=== PATIENT | female | born 1985 | race Caucasian/White ===

== ENCOUNTER 2025-02-09 18:52 | Emergency (ER) | payer MEDICAID, SELFPAY ==
--- NOTE | 2025-02-09 19:07 | PD.EDCHEST ---
ED Chest Pain RME/HPI General Chief Complaint: Chest Pain Stated Complaint: BACK PAIN Time Seen by Provider: 02/09/25 19:05 Arrival date/time: 02/09/25 18:52 RME / HPI RME / HPI narrative: See [facility] for Dr. Lopez's HPI Documentation. Related Data Home Medications ?Medication ?Instructions ?Recorded ?Confirmed methadone 10 mg/mL oral concentrate 100 mg PO DAILY 09/22/17 09/22/17 Previous Rx's ?Medication ?Instructions ?Recorded propranolol 10 mg tablet 10 mg PO DAILY #30 tabs 09/23/18 lidocaine 5 % topical cream 1 applicatio topical BID PRN pain 11/01/18 #45 grams ferrous sulfate 325 mg (65 mg 325 mg PO BID #120 tabs 10/17/20 iron) tablet cephalexin 500 mg capsule 500 mg PO QID #28 caps 09/28/21 cephalexin 500 mg capsule 500 mg PO QID #28 caps 05/27/23 acetaminophen 300 mg-codeine 30 mg 2 tab PO Q8H PRN pain #20 tabs 02/09/25 tablet Allergies Allergy/AdvReac Type Severity Reaction Status Date / Time No Known Allergies Allergy Verified 05/27/23 08:52 Review of Systems Review of Systems Systems Reviewed: All systems reviewed, normal except as documented Past Medical History Past Medical History GASTROINTESTINAL: Positive Gall Bladder Disease PSYCHO/SOCIAL: Positive Anxiety Surgical History SURGICAL: Positive Section ED Exam Narrative Physical exam: See [facility] for Dr. Lopez's Physical Exam Documentation. Course Quality Measures none Orders Category Date Time Status CT Screening NOW Care 02/09/25 19:09 Completed EKG (ED ONLY) *Do not use* NOW Care 02/09/25 19:08 Completed Saline [Insert IV] NOW Care 02/09/25 19:[address] angio chest Stat Exams 02/09/25 19:[address] cervical spine wo con Stat Exams 02/09/25 19:[address] head/brain wo con Stat Exams 02/09/25 19:[address] lumbar spine wo con Stat Exams 02/09/25 19:[address] thoracic spine wo con Stat Exams 02/09/25 19:10 Completed EKG (ED Only) Stat Exams 02/09/25 19:08 Draft XR chest 1V portable Stat Exams 02/09/25 19:08 Completed BNP [B-Type Natriuretic Peptide] Stat Lab 02/09/25 19:20 Completed Bilirubin,Direct Stat Lab 02/09/25 19:20 Completed CBC Stat Lab 02/09/25 19:20 Completed CMP [Comprehensive Metabolic Panel] Stat Lab 02/09/25 19:20 Completed D-Dimer Stat Lab 02/09/25 19:20 Completed HCG,Qualitative Serum Stat Lab 02/09/25 19:20 Completed Hemoglobin A1C [Glycohemoglobin w (eAG)] Stat Lab 02/09/25 19:20 Completed Magnesium Stat Lab 02/09/25 19:20 Completed TSH [Thyroid Stimulating Hormone] Stat Lab 02/09/25 19:20 Completed Troponin I Stat Lab 02/09/25 19:20 Completed UA, C/S IF [Urinalysis, C/S if Indicated] Stat Lab 02/09/25 20:27 Completed Azithromycin Inj [Zithromax Inj] 500 mg Med 02/09/25 21:17 Discontinued Sodium Chloride 0.9% 250 ml [Ns] 250 ml IV X1 LORazepam [Ativan Inj] Med 02/09/25 22:19 Discontinued 1.5 mg IVP X1 ONE Morphine* Inj Med 02/09/25 19:07 Discontinued 4 mg IV X1 ONE Morphine* Inj Med 02/09/25 21:31 Discontinued 4 mg IV X1 ONE Ondansetron Inj [Zofran Inj] Med 02/09/25 22:40 Discontinued 4 mg IVP X1 ONE Sodium Chloride 0.9% 1000 ml [Ns] 1,000 ml Med 02/09/25 19:07 Discontinued IV 999 mls/hr cefTRIAXone/D5w 1gm IV premix [Rocephin/D5w 1gm IV Med 02/09/25 21:17 Discontinued premix] 1 gm in 50 ml IV X1 Vital Signs Vital signs: Vital Signs Temperature 98.5 F 02/09/25 19:26 Pulse Rate 113 H 02/09/25 19:26 Respiratory Rate 17 02/09/25 19:26 Blood Pressure 125/87 H 02/09/25 19:26 Pulse Oximetry (%) 98 02/09/25 19:26 Oxygen Delivery Method Room Air 02/09/25 19:26 Chest Pain MDM Narrative MDM Narrative:: This section includes all my notes and documentations, including HPI, PE, and ED course. Wilton Lopez MD HPI: 39 y/o female with Hx of Chronic Neck and Back Pain BIBA from home with sudden chest pain. Other symptoms include intense fear, pounding and racing heart, sweating, chills, shaking, trouble breathing, stomach pain, nausea, numbness and tingling in upper and lower extremities, confusion, hot flashes, and feeling faint. Reports severe headache. And worse neck pain and back pain than normal. No speech or visual impairment. No loss of power to arms or legs. No loss of control of bladder or bowels. No saddle numbness. No other complaints. ROS: All negative except as documented in HPI. Physical Exam: General: Alert and oriented. In severe anxiety state. Eyes: Conjunctivae and lids clear. EOMI. PERRL. ENT: No nasal congestion. Pharynx normal. Tympanic membrane normal bilaterally. Neck: Supple. No carotid bruit. No JVD. Heart: Tachycardia with regular rhythm. Lungs: No respiratory distress. Good air movement. No rhonchi, wheezing, rales. Chest: Severe tenderness with palpation of the anterior chest. Abdomen: Soft and nontender. Normal bowel sounds. No distension. No rebound or guarding. Back: Diffuse tenderness, difficult to localize. Legs: No clubbing, cyanosis, edema. Skin: Warm and dry. Neuro: Alert and oriented X 3. Cranial Nerves II-XII grossly intact. No peripheral motor deficits. Musculoskeletal: All major joints and bones are not tender with no limited ROM. I reviewed EMS notes. I reviewed all diagnostic test results: My interpretation of the EKG is: Sinus tachycardia (110 bpm) with nonspecific ST-T changes. My interpretation of the chest x-ray is equivocal left-sided infiltrates. My review of the Chest CTA report is no PE. My review of the Head/Brain CT report is: No acute findings. My review of the C-Spine CT report is: No acute findings. My review of the T-Spine CT report is: No acute findings. My review of the L-Spine CT report is: No acute findings. Blood tests and urine tests unremarkable. At this point, diagnoses include: Chest pain most likely due to anxiety Paresthesias most likely due to anxiety Treatment here included: IVF Morphine 4 mg IV X 2 (no significant improvement noted) Ativan 1.5 mg IV (significant improvement noted) Rocephin 1 g IV and Zithromax 500 mg IV (for possible pneumonia on CXR, prior to chest CT) Recommended more outpatient workup. Based on my best medical judgment, made decision no further evaluation or treatment indicated at this time. Patient understands and agrees to the discharge instructions customized and printed, see below. Discharge instructions from Dr. Lopez: 1. After extensive evaluation, exact cause of your symptoms (including chest pain and numbness and tingling in arms and legs) was not determined. But there is no immediately life-threatening condition. Such as stroke or brain tumor or heart attack or pulmonary embolism (blood clots in your lungs) or pneumothorax (collapsed lung). 2. You will need more tests and investigation not available here with your private doctor to find the cause/treatment of your symptoms. 3. Take Xanax as needed. Whether this helps or not will be valuable information to your private doctors. 4. See a private doctor on 02/11/2025. Ask to review all test results and official radiology reports, to make sure you receive all necessary follow-ups and monitoring. To make sure there is no serious underlying heart condition, ask to help you get more tests for your heart that cannot be done here in the ER. Such as Holter Monitor (cardiac monitoring at home from a day to even a month), heart stress test (on treadmill or with medication), echocardiogram (imaging of your heart structures), heart catherization (checking for blockages in your heart arteries), and a referral to see a Executive Vice President And Chief Financial Officer. Ask for help with MRI imaging studies and nerve conduction studies and referral to see neurologist. 5. Seek immediate medical care with worsening or with any concerns. Wilton Lopez MD Patient data External records reviewed:: [facility] previous records (Reviewed prior ED records from 05/27/23. Patient was seen for Hematuria.) and EMS form Clinical information provided by:: patient and EMS Social determinants that could affect healthcare access:: none Patient has the following chronic illnesses:: Neck and back pain How is presenting disease/condition affected by chronic disease/condition?: exacerbated by Evaluation data The following diagnostics were reviewed and interpreted by me:: EKG tracing(s) (My interpretation of the EKG is: Sinus tachycardia (110 bpm) with nonspecific ST-T changes. Wilton Lopez MD) Lab and/or radiology exams considered but not ordered:: None Interpretation Summary: I reviewed all diagnostic test results: My interpretation of the EKG is: Sinus tachycardia (110 bpm) with nonspecific ST-T changes. My interpretation of the chest x-ray is equivocal left-sided infiltrates. My review of the Chest CTA report is no PE. My review of the Head/Brain CT report is: No acute findings. My review of the C-Spine CT report is: No acute findings. My review of the T-Spine CT report is: No acute findings. My review of the L-Spine CT report is: No acute findings. Blood tests and urine tests unremarkable. Medications / Prescriptions Medications or Prescriptions considered but not ordered:: None Medication administrations:: Medication Administration History Discontinued Medications Sodium Chloride (Ns) 1,000 mls @ 999 mls/hr IV .Q1H1M ONE Stop: 02/09/25 20:07 Last Infusion: 02/09/25 20:40 Dose: Infused Documented By: Admin: 02/09/25 19:39 Dose: 999 mls/hr Documented By: SM Azithromycin 500 mg/ Sodium (Chloride) 250 mls @ 250 mls/hr IV X1 ONE Stop: 02/09/25 22:16 Last Infusion: 02/09/25 22:42 Dose: Infused Documented By: Admin: 02/09/25 21:42 Dose: 250 mls/hr Documented By: SR Ceftriaxone Sodium/Dextrose (Rocephin/D5w 1gm Iv Premix) 1 gm in 50 mls @ 100 mls/hr IV X1 ONE Stop: 02/09/25 21:46 Last Infusion: 02/09/25 22:13 Dose: Infused Documented By: Admin: 02/09/25 21:43 Dose: 100 mls/hr Documented By: SR Lorazepam (Lorazepam 2 Mg/Ml Vial) 1.5 mg IVP X1 ONE Stop: 02/09/25 22:20 Last Admin: 02/09/25 22:50 Dose: 1.5 mg Documented By: SR Comments: 1.5mg administered Morphine Sulfate (Morphine Sulf Inj 4 Mg/Ml Vial) 4 mg IV X1 ONE Stop: 02/09/25 19:08 Last Admin: 02/09/25 19:40 Dose: 4 mg Documented By: SM Morphine Sulfate (Morphine Sulf Inj 4 Mg/Ml Vial) 4 mg IV X1 ONE Stop: 02/09/25 21:32 Last Admin: 02/09/25 21:40 Dose: 4 mg Documented By: SR Ondansetron HCl (Ondansetron Inj 2 Mg/Ml Inj 2 Ml) 4 mg IVP X1 ONE; Protocol Stop: 02/09/25 22:41 Last Admin: 02/09/25 22:55 Dose: 4 mg Documented By: SR Treatment here included: IVF Morphine 4 mg IV X 2 (no significant improvement noted) Ativan 1.5 mg IV (significant improvement noted) Rocephin 1 g IV and Zithromax 500 mg IV (for possible pneumonia on CXR, prior to chest CT) Consultations Consultation(s) initiated? (list below): No Diagnosis Chest Pain Differential Diagnosis: fracture of rib, pneumothorax, stable angina, unstable angina pectoris, atypical chest pain, st elevation myocardial infarction and costochondritis Most likely diagnosis given after review of the tests above:: Chest Pain most likely due to anxiety Numbness and Tingling most likely due to anxiety Admission Indicated Admission indicated?: not indicated Explain why admission is indicated or not indicated:: With significant improvement and no condition needing emergent intervention, there was no indication for admission. Admission Request Was there a request for admission?: No Disposition Plan Disposition Plan: Discharge Discharge Attestation Discharge Attestation: The patient and all family members were given an opportunity to ask questions and understood the discharge instructions. Discharge instructions specifically effects, indications for sooner follow up or return to the emergency department, and the expected course of current diagnosis. Patient condition: Stable Discharge Plan Plan Patient Disposition: HOME (Self Care) Prescriptions/Referrals Prescriptions/Med Rec: New acetaminophen-codeine 300-30 mg tablet 2 tab PO Q8H MDD 6 PRN (Reason: pain) Qty: 20 0RF No Action propranolol 10 mg tablet 10 mg PO DAILY Qty: 30 0RF cephalexin 500 mg capsule 500 mg PO QID Qty: 28 0RF methadone 10 mg/mL Concentrate 100 mg PO DAILY lidocaine 5 % cream 1 applicatio TOPICAL BID PRN (Reason: pain) Qty: 45 0RF ferrous sulfate 325 mg (65 mg iron) tablet 325 mg PO BID Qty: 120 0RF Rx Instructions: Be sure to take your iron pills on an empty stomach, with orange juice cephalexin 500 mg capsule 500 mg PO QID Qty: 28 0RF Referrals: No Primary/Family,Physician [Primary Care Provider] - In 1 week Problem List Clinical Impression: Chest pain, Numbness and tingling Patient/Caregiver Discharge Instructions Discharge Activity: activity as tolerated Education Materials: ED Chest Pain, Uncertain Cause, ED Paraesthesias Additional Instructions: Discharge instructions from Dr. Lopez: 1. After extensive evaluation, exact cause of your symptoms (including chest pain and numbness and tingling in arms and legs) was not determined. But there is no immediately life-threatening condition. Such as stroke or brain tumor or heart attack or pulmonary embolism (blood clots in your lungs) or pneumothorax (collapsed lung). 2. You will need more tests and investigation not available here with your private doctor to find the cause/treatment of your symptoms. 3. Take Xanax as needed. Whether this helps or not will be valuable information to your private doctors. 4. See a private doctor on 02/11/2025. Ask to review all test results and official radiology reports, to make sure you receive all necessary follow-ups and monitoring. To make sure there is no serious underlying heart condition, ask to help you get more tests for your heart that cannot be done here in the ER. Such as Holter Monitor (cardiac monitoring at home from a day to even a month), heart stress test (on treadmill or with medication), echocardiogram (imaging of your heart structures), heart catherization (checking for blockages in your heart arteries), and a referral to see a Executive Vice President And Chief Financial Officer. Ask for help with MRI imaging studies and nerve conduction studies and referral to see neurologist. 5. Seek immediate medical care with worsening or with any concerns. Print Language: Danish
--- NOTE | 2025-02-09 19:08 | EKG_ITS ---
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
--- NOTE | 2025-02-09 19:08 | XR_ITS ---
EXAMINATION: AP chest single view TECHNIQUE: AP portable upright chest single view Date and time: February 09, 20251950 hours INDICATIONS: Shortness of breath today. FINDINGS: Diffuse left lung pneumonia Moderate elevation right hemidiaphragm Normal heart size Intact osseous structures IMPRESSION: Diffuse left lung pneumonia
--- NOTE | 2025-02-09 19:09 | XR_ITS ---
Examination: CT cervical spine without contrast 2-D sagittal reconstructions 2-D coronal reconstructions 3-D reconstructions. Exam date and time: February 09, 2025, 2100 hours INDICATIONS: Hand numbness and paresthesias in the hands 6 hours CTDI:vol (mGy) 18.1 DLP: (mGycm) 448 Technique: Multiple 2 mm axial sections of the cervical spine have been obtained. The coronal and sagittal reconstructions have been obtained. 3-D reconstructions have been obtained. Low dose protocols were performed. One or more of the following dose reduction techniques were used; automated exposure control, adjustment of the mA and/or KV according to patient size, use of iterative reconstruction technique. Findings: Axial sections demonstrate intact base of the skull. C1 exhibit satisfactory relationship to the odontoid. No acute cervical vertebral body fracture seen. Alignment posterior spinous processes satisfactory. Impression: No acute cervical fracture.
--- NOTE | 2025-02-09 19:09 | XR_ITS ---
Examination: CTA chest with intravenous contrast 2-D reconstructions 3-D reconstructions, vascular Date and time of exam: February 09, 2025, 2110 hours INDICATIONS: Chest pain shortness of breath 6 hours CTDI: vol (mGy) 28.34 DLP: (mGycm) 667 Technique: Multiple axial sections of the thorax have been obtained. 3 mm slice thickness, from below the hemidiaphragms to above the apices of the lungs. Mediastinal and lung density settings have been obtained. 2-D sagittal and coronal reconstructions. 3-D angiographic renderings, 3-D volume renderings, 3D post processing, vascular maximum intensity projections obtained. Contrast administered is 100 cc [id number]. Low dose protocols were performed. One or more of the following dose reduction techniques were used; automated exposure control, adjustment of the mA and/or KV according to patient size, use of iterative reconstruction technique. Findings: No thoracic aortic aneurysm dilatation or dissection Pulmonary artery segments are not enlarged. No pulmonary artery emboli No paratracheal tracheobronchial or bronchopulmonary adenopathy No pneumonia or pulmonary edema Severe fatty infiltration throughout the liver, liver is irregular in contour and enlarged Spleen is not prominent No pancreatic mass Kidneys partially visualized no hydronephrosis IMPRESSION: Negative for pulmonary artery emboli No pneumonia or pulmonary edema
--- NOTE | 2025-02-09 19:09 | XR_ITS ---
Examination: CT brain head without contrast. 2-D sagittal coronal reconstructions Date and time of exam: February 09, 2025, 2056 hours INDICATIONS: Bilateral hand numbness and paresthesias 6 hours CTDI: vol (mGy): 54.2 DLP: (mGycm): 1236 Technique: Multiple CT axial sections of the brain have been obtained, 5 mm slice thickness. Contrast has not been administered. 2-D sagittal, coronal reconstructions have been obtained Low dose protocols were performed. One or more of the following dose reduction techniques were used; automated exposure control, adjustment of the mA and/or KV according to patient size, use of iterative reconstruction technique. Findings: No significant ventricular enlargement. Intra-axial or extra-axial hemorrhage density is not seen. No mass effect or midline shift Basal cisterns are not remarkable. Fourth ventricle is midline. Cranial vault intact. Impression: Negative for acute hemorrhage, mass effect or midline shift As clinically warranted, brain MRI follow-up would best assess for demyelinating disease
--- NOTE | 2025-02-09 19:09 | XR_ITS ---
Examination: CT lumbar spine, without contrast. 2-D sagittal reconstructions. 2-D coronal reconstructions. 3-D reconstructions. Date and time of exam: February 09, 2025, 2106 hours INDICATIONS: Low back pain today, no trauma CTDI: vol (mGy): 79.7 DLP: (mGycm): 2616 Technique: Multiple 1.25 mm axial sections of the lumbar spine without intravenous contrast have been obtained. 2-D sagittal and coronal reconstructions have been obtained. 3-D reconstructions have been obtained. Low dose protocols were performed. One or more of the following dose reduction techniques were used; automated exposure control, adjustment of the mA and/or KV according to patient size, use of iterative reconstruction technique. Findings: Adequate alignment lumbar vertebral bodies No lumbar fracture No spondylolisthesis Mild disc narrowing L5-S1 Lumbar pedicles, laminae, transverse and posterior spinous processes intact Incidental note significant hepatomegaly with fatty infiltration No focal thoracic disc protrusion IMPRESSION: No lumbar fracture Mild disc narrowing L5-S1 No focal lumbar disc protrusion
--- NOTE | 2025-02-09 19:10 | XR_ITS ---
Examination: CT thoracic spine, without contrast. 2-D sagittal reconstructions. 2-D coronal reconstructions. 3-D reconstructions. Date and time of exam: February 09, 2025, 210 hours INDICATIONS: Onset back pain today no trauma CTDI: vol (mGy): 88.5 DLP: (mGycm): 2947 Technique: Multiple 1.25 mm axial sections of the thoracic spine have been obtained. 2-D sagittal and coronal reconstructions have been obtained. 3-D reconstructions have been obtained. Low dose protocols were performed. One or more of the following dose reduction techniques were used; automated exposure control, adjustment of the mA and/or KV according to patient size, use of iterative reconstruction technique. Findings: Adequate alignment thoracic vertebral bodies on the lateral view Satisfactory alignment posterior spinous processes Pedicles laminae transverse and posterior spinous processes intact Mild diffuse thoracic disc narrowing No focal thoracic disc protrusion IMPRESSION: Mild diffuse thoracic degenerative disc disease No thoracic fracture
[2025-02-09 19:26] VITALS: BP 125/87; PULSE 113; RESP 17; TEMP 36.9; O2SAT 98
[2025-02-09 19:35] VITALS: PULSE 118; RESP 20; O2SAT 98
[2025-02-09] MEDS: SODIUM CHLORIDE 0.9% 1000 ML 1,000 ML 999 ML IV (19:39)
[2025-02-09] MEDS: MORPHINE SULF INJ 4 MG/ML VIAL IV ×2 (19:40→21:40)
[2025-02-09 19:42] VITALS: BMI 39.6
[2025-02-09 19:55] LABS: Basophils # (Auto) 0.1 Thou/mm3 (0.0-0.2); Basophils % (Auto) 1 % (0-2.5); Eosinophils # (Auto) 0.3 Thou/mm3 (0.0-0.5); Eosinophils % (Auto) 3 % (0-10); Hematocrit 29.7 % (36.0-46.0); Immature Granulocytes Auto 0.09 Thou/mm3 (0.00-0.00); Lymphocytes # (Auto) 1.8 Thou/mm3 (1.0-4.8); Lymphocytes % (Auto) 14 % (10-50); Mean Corpuscular HGB Conc 27.9 g/dl (31.0-37.0); Mean Corpuscular Hemoglobin 21.6 pg (25.0-35.0); Mean Corpuscular Volume 77 fL (80-100); Monocytes # (Auto) 1.0 Thou/mm3 (0.0-0.8); Monocytes % (Auto) 7 % (0-12); Neutrophils # (Auto) 9.9 Thou/mm3 (1.8-7.7); Neutrophils % (Auto) 75 % (37-80); Nucleated Red Blood Cell # 0.00 Thou/mm3 (0.00-0.00); Nucleated Red Blood Cell % 0 /100 WBC (0); Platelet Count 226 Thou/mm3 (140-440); RDW Standard Deviation 53.6 fL (36.4-46.3); Red Blood Count 3.85 Miln/mm3 (4.00-5.20); White Blood Count 13.2 Thou/mm3 (3.6-11.0)
[2025-02-09 19:59] LABS: Hemoglobin 8.3 g/dL (12.0-16.0)
[2025-02-09 20:07] LABS: D-Dimer < 250 ng/mL (<600)
[2025-02-09 20:12] VITALS: BP 133/85; PULSE 108; RESP 15; TEMP 36.7; O2SAT 98
[2025-02-09 20:28] LABS: Alanine Aminotransferase 69 U/L (10-49); Albumin, Serum 4.1 gm/dL (3.5-5.0); Albumin/Globulin Ratio 1.7 (1.2-2.2); Alkaline Phosphatase 123 U/L (46-116); Anion Gap 11 (7-16); Aspartate Amino Transferase 86 U/L (0-34); BUN/Creatinine Ratio 8 Ratio (12-20); Bilirubin,Direct 0.1 mg/dL (0.0-0.3); Bilirubin,Total 0.3 mg/dL (0.3-1.2); Blood Urea Nitrogen 7 mg/dL (9-23); Calcium 7.6 mg/dL (8.3-10.6); Calcium (Corrected) 7.6 mg/dL (8.5-10.1); Carbon Dioxide 27.1 mMol/L (20.0-31.0); Chloride 100 mMol/L (98-107); Creatinine (Component) 0.9 mg/dL (0.6-1.3); Estimated Creatinine Clearance 87.6 mL/min (>60); Globulin 2.4 gm/dL (2.3-3.5); Glucose 108 mg/dL (74-106); Magnesium 2.1 mg/dL (1.6-2.6); Osmolality,Calculated 274 (275-295); Potassium 4.1 mMol/L (3.4-5.1); Sodium 138 mMol/L (136-145); Thyroid Stimulating Hormone 1.43 uIU/mL (0.55-4.78); Total Protein 6.5 gm/dL (5.7-8.2); Troponin I < 0.002 ng/mL (0.0-0.045); eGFR > 60 See Note
[2025-02-09 20:31] LABS: Collection Type, Urine Clean Catch
[2025-02-09 20:47] LABS: Bacteria,Urine 2+; Bilirubin,Urine Negative (Negative); Blood,Urine Negative (Negative); Clarity,Urine Turbid (Clear/Hazy); Color,Urine Yellow (Lt Yel-Yel); Culture Indicated,Urine Contaminated; Glucose, Urine Negative (Negative); Hyaline Casts,Urine < 1 /hpf (0-1); Ketones,Urine Negative (Negative); Leukocyte Esterase,Urine Positive (Negative); Nitrite,Urine Negative (Negative); PH,Urine 6.0 (5.0-7.0); Protein,Urine Negative (Neg - Trace); RBC,Urine 6 /hpf (0-3); Specific Gravity,Urine 1.015 (1.001-1.035); Squamous Epithelial Cell,Urine 36 /hpf (0-5); Urobilinogen,Urine Negative mg/dL (0.0-1.0); WBC,Urine 7 /hpf (0-5)
[2025-02-09 20:54] LABS: HCG,Qualitative Serum Negative
[2025-02-09] MEDS: AZITHROMYCIN INJ 500 MG in SODIUM CHLORIDE 0.9% 250 ML 250 ML 250 MG IV (21:42)
[2025-02-09] MEDS: cefTRIAXone/D5w 1gm IV premix 1 GM/50 ML BAG IV (21:43)
[2025-02-09 22:16] LABS: Glucose Estimated Average 114 mg/dL (80-131); Hemoglobin A1C 5.6 % Hgb (4.8-6.0)
[2025-02-09 22:36] LABS: B-Type Natriuretic Peptide < 20 pg/mL (0-100)
[2025-02-09 22:41] VITALS: BP 113/83; PULSE 115; RESP 18; O2SAT 96
[2025-02-09] MEDS: LORazepam 2 MG/ML VIAL 1.5 MG IVP (22:50)
[2025-02-09] MEDS: ONDANSETRON INJ 2 MG/ML INJ 2 ML 4 MG IVP (22:55)
[2025-02-09 23:26] VITALS: PULSE 102; RESP 19; TEMP 36.7; O2SAT 98
== END 2025-02-09 23:30 | disposition home or self-care (01) ==
PROVIDERS: Emergency Provider Emergency Medicine
DX: R20.2 Paresthesia of skin (principal); R20.0 Anesthesia of skin; R07.9 Chest pain, unspecified; R00.0 Tachycardia, unspecified; R51.9 Headache, unspecified; M54.2 Cervicalgia; M54.6 Pain in thoracic spine; M54.50 Low back pain, unspecified; G89.29 Other chronic pain
CPT/HCPCS: 36415; 70450; 71045; 71275; 72125; 72128; 72131; 80053; 81001; 82248; 83036; 83605; 83735; 83880; 84145; 84443; 84484; 84703; 85025; 85379; 85652; 86140; 87040; 93005; 96361; 96365; 96375; 99284; A4649; J0456; J0696; J2060; J2270; J2405; J7030; J7050; Q9967